=== PATIENT | male | born 1955 | race Two or more races ===

== ENCOUNTER 2019-11-20 10:00 | Inpatient (IN) | payer OTHER ==
[~2019-11-20] VITALS: Ht 172.7 cm; Wt 141.1 kg
[2019-11-22] MEDS ORDERED: SYNTHROID88 MCG PO (12:20)
[2019-11-22] MEDS ORDERED: SIMVASTATIN10 MG PO (12:20)
[2019-11-22] MEDS ORDERED: ZESTRIL20 MG PO (12:21)
[2019-11-22] MEDS ORDERED: MICROZIDE12.5 MG PO (12:21)
[2019-11-22] MEDS ORDERED: TOPROL XL100 M1 PO (12:21)
[2019-11-22] MEDS ORDERED: COZAAR100 MG PO (12:22)
[2019-11-22] MEDS ORDERED: VOLTAREN100 GM TOP (12:22)
[2019-11-22] MEDS ORDERED: ELIQUIS5 M1 PO (12:22)
[2019-11-28] MEDS ORDERED: INTEGRA PLUS C1 EACH PO (13:35)
[2019-11-28] MEDS ORDERED: OXYC1TAB9 PO (13:35)
[2019-11-28] MEDS ORDERED: ELIQUIS2.5 MG PO (13:35)
== END 2019-11-28 18:03 | DRG 470 ==
LOC: O/R 11-26 06:05 → SURH 11-26 06:05 → O/R 11-26 10:00 → SURH 11-26 10:45 → SURG 11-26 16:20 → SURH 11-26 16:59
PROVIDERS: ADMIT Orthopaedic Surgery Sports Medicine
PROC: 0SRC0J9 Replacement of Right Knee Joint with Synthetic Substitute, Cemented, Open Approach (ICD-10-PCS; principal; 2019-11-26 10:45)
DX: M17.11 Unilateral primary osteoarthritis, right knee (principal); I10 Essential (primary) hypertension

== ENCOUNTER 2021-08-20 08:00 | Inpatient (IN) | payer OTHER ==
[~2021-08-20] VITALS: Ht 167.6 cm; Wt 141.1 kg
[~2021-08-20 08:00] MED LIST: COZAAR100 MG PO; ELIQUIS2.5 MG PO; ELIQUIS5 M1 PO; INTEGRA PLUS C1 EACH PO; MICROZIDE12.5 MG PO; OXYC1TAB9 PO; SIMVASTATIN10 MG PO; SYNTHROID88 MCG PO; TOPROL XL100 M1 PO; VOLTAREN100 GM TOP; ZESTRIL20 MG PO
[2021-08-26] MEDS ORDERED: ELIQUIS2.5 MG PO (08:13)
[2021-08-26] MEDS ORDERED: OXYC1TAB9 PO (08:13)
[2021-08-26] MEDS ORDERED: BACTRIM DS TAB1 EACH PO (08:13)
[2021-08-26] MEDS ORDERED: INTEGRA PLUS C1 EACH PO (08:13)
== END 2021-08-26 16:52 | DRG 470 ==
LOC: O/R 08-24 07:15 → SURH 08-24 07:15
PROVIDERS: ADMIT Orthopaedic Surgery Sports Medicine; ATTEND Orthopaedic Surgery Sports Medicine
PROC: 0SRD0J9 Replacement of Left Knee Joint with Synthetic Substitute, Cemented, Open Approach (ICD-10-PCS; principal; 2021-08-24 10:40)
DX: M17.12 Unilateral primary osteoarthritis, left knee (principal); I11.9 Hypertensive heart disease without heart failure; I25.10 Atherosclerotic heart disease of native coronary artery without angina pectoris; I48.91 Unspecified atrial fibrillation; Z95.0 Presence of cardiac pacemaker; E03.9 Hypothyroidism, unspecified; E78.00 Pure hypercholesterolemia, unspecified